=== PATIENT | male | born 1980 | race Caucasian/White ===

== ENCOUNTER 2019-01-26 18:50 | Emergency (ER) | payer OTHER ==
[~2019-01-26] VITALS: Ht 170.2 cm; Wt 72.6 kg
[2019-01-26 19:03] VITALS: BP 142/92
[2019-01-26] MEDS ORDERED: CYCLOBENZAPRINE 10 MG TABLET. PO ONE (19:30)
[2019-01-26] MEDS ORDERED: CYCL-331 PO (19:33)
--- NOTE | 2019-01-26 19:33 | PHYS DOC ---
Past History Past Medical History: No Pertinent History Alcohol Use: None Drug Use: None Adult General Chief Complaint Chief Complaint: SHOULDER INJURY HPI HPI 38-year-old male presents with right mid back pain. The patient was bench pressing yesterday and after he got done he felt the twinge in the posterior right shoulder. He thought maybe he was overdoing it is a little bit. Later on that evening and throughout the day today he has had increasing pain at the inferior trapezius area on the right side. The patient did not hear a pop or feeling of kind of tear. He now feels like the pain is squeezing tightness in the paraspinal muscles. He occasionally has an electrical type feeling that radiates from that area. He has been taking ibuprofen 800 every 6 hours but it does not making the spasms go away. Patient denies fever or chills. He has no other injuries or complaints. Review of Systems Review of Systems Constitutional: Denies fever or chills [] Eyes: Denies change in visual acuity, redness, or eye pain [] HENT: Denies nasal congestion or sore throat [] Respiratory: Denies cough or shortness of breath [] Cardiovascular: No additional information not addressed in HPI [] GI: Denies abdominal pain, nausea, vomiting, bloody stools or diarrhea [] : Denies dysuria or hematuria [] Musculoskeletal: Mid thoracic back pain on the right[] Integument: Denies rash or skin lesions [] Neurologic: Denies headache, focal weakness or sensory changes [] Endocrine: Denies polyuria or polydipsia [] All other systems were reviewed and found to be within normal limits, except as documented in this note. Allergies Allergies Allergies Coded Allergies Type Severity Reaction Last Updated Verified No Known Drug Allergies 01/26/19 No Physical Exam Physical Exam Constitutional: Well developed, well nourished, no acute distress, non-toxic appearance. [] HENT: Normocephalic, atraumatic, bilateral external ears normal, oropharynx moist, no oral exudates, nose normal. [] Eyes: PERRLA, EOMI, conjunctiva normal, no discharge. [] Neck: Normal range of motion, no tenderness, supple, no stridor. [] Cardiovascular:Heart rate regular rhythm, no murmur [] Lungs & Thorax: Bilateral breath sounds clear to auscultation [] Abdomen: Bowel sounds normal, soft, no tenderness, no masses, no pulsatile masses. [] Skin: Warm, dry, no erythema, no rash. [] Back: Tenderness and muscle spasm T8-T10 on the right[] Extremities: No tenderness, no cyanosis, no clubbing, ROM intact, no edema. [] Neurologic: Alert and oriented X 3, normal motor function, normal sensory functi on, no focal deficits noted. [] Psychologic: Affect normal, judgement normal, mood normal. [] Current Patient Data Vital Signs Vital Signs Date Time Temp Pulse Resp B/P (MAP) Pulse Ox O2 Delivery O2 Flow Rate FiO2 01/26/19 19:03 98.1 18 18 99 Room Air EKG EKG [] Radiology/Procedures Radiology/Procedures [] Course & Med Decision Making Course & Med Decision Making Pertinent Labs and Imaging studies reviewed. (See chart for details) I believe the patient has a paraspinal muscle strain with reflex spasm. I have advised that he continue the ibuprofen but also use ice, rest, and muscle relaxers. I'll give her a prescription for Flexeril. I will give his first dose in the ED. The patient is stable for discharge at this time. [] Dragon Disclaimer Dragon Disclaimer This electronic medical record was generated, in whole or in part, using a voice recognition dictation system. Departure Departure: Impression: Primary Impression: Strain of right trapezius muscle Disposition: HOME, SELF-CARE Condition: STABLE Referrals: PCP,NO (PCP) Patient Instructions: Thoracic Strain, Ovye-yn-Ptgh Scripts Cyclobenzaprine Hcl (CYCLOBENZAPRINE HCL) 10 Mg Tablet 1 TAB PO TID PRN for MUSCLE SPASMS, #30 TAB Prov: FAUZIA BARRETT DO 01/26/19 Problem Qualifiers Primary Impression: Strain of right trapezius muscle Encounter type: initial encounter Qualified Codes: S46.811A - Strain of other muscles, fascia and tendons at shoulder and upper arm level, right arm, initial encounter FAUZIA BARRETT DO Jan 26, 2019 19:33
== END 2019-01-26 19:50 | disposition home or self-care (01) ==
LOC: ER 18:50
DX: S46.811A Strain of other muscles, fascia and tendons at shoulder and upper arm level, right arm, initial encounter (principal); X50.9XXA Other and unspecified overexertion or strenuous movements or postures, initial encounter; Y93.89 Activity, other specified; Y92.89 Other specified places as the place of occurrence of the external cause; Y99.8 Other external cause status
CPT/HCPCS: 99283

== ENCOUNTER 2019-04-26 20:54 | Emergency (ER) | payer OTHER ==
[~2019-04-26] VITALS: Ht 182.9 cm; Wt 97.5 kg
[~2019-04-26 20:54] MED LIST: CYCL-331 PO
--- NOTE | 2019-04-26 20:57 | ED.ADGEN ---
Past History Past Medical History: No Pertinent History Alcohol Use: None Drug Use: None Adult General Chief Complaint Chief Complaint ".. I notice I started getting pain back on my Lt hip area.. and today it looks like insect bite.. but it all infected looking .. I can't ever have my pants against it..." HPI HPI Patient is a 38 year old male who presents with above hx and complaints of insect bite left upper gluteal area. Patient has a 6 x 6 cm area of pointing abscess. No striations. No history immunosuppression. No history of specific ill contacts. Last tetanus shot was approximately 1 year ago. Review of Systems Review of Systems Constitutional: Denies fever or chills [] Eyes: Denies change in visual acuity, redness, or eye pain [] HENT: Denies nasal congestion or sore throat [] Respiratory: Denies cough or shortness of breath [] Cardiovascular: No additional information not addressed in HPI [] GI: Denies abdominal pain, nausea, vomiting, bloody stools or diarrhea [] : Denies dysuria or hematuria [] Musculoskeletal: Denies back pain or joint pain [] Integument: Denies rash or skin lesions []Complaints of abscess cellulitis left gluteal area. Neurologic: Denies headache, focal weakness or sensory changes [] Endocrine: Denies polyuria or polydipsia [] All other systems were reviewed and found to be within normal limits, except as documented in this note. Family History Family History Noncontributory Current Medications Current Medications Current Medications Medications (Trade) Dose Ordered Sig/Montrell Start Time Stop Time Status Last Admin Dose Admin Ceftriaxone Sodium (Rocephin Im) 1 gm 1X ONCE 04/26/19 22:45 04/26/19 22:46 DC 04/26/19 23:01 1 GM Lidocaine HCl 20 ml STK-MED ONCE 04/26/19 22:48 04/26/19 22:49 DC Trimethoprim/ Sulfamethoxazole (Bactrim Ds) 1 tab 1X ONCE 04/26/19 22:45 04/26/19 22:46 DC 04/26/19 22:53 1 TAB Allergies Allergies Allergies Coded Allergies Type Severity Reaction Last Updated Verified No Known Drug Allergies 01/26/19 No Physical Exam Physical Exam Constitutional: Well developed, well nourished, moderately acute distress, non- toxic appearance. [] HENT: Normocephalic, atraumatic, bilateral external ears normal, oropharynx moist, no oral exudates, nose normal. [] Eyes: PERRLA, EOMI, conjunctiva normal, no discharge. [] Neck: Normal range of motion, no tenderness, supple, no stridor. [] Cardiovascular:Heart rate regular rhythm, no murmur [] Lungs & Thorax: Bilateral breath sounds clear to auscultation [] Abdomen: Bowel sounds normal, soft, no tenderness, no masses, no pulsatile masses. [] Skin: Warm, dry, no erythema, no rash. Pointing abscess left gluteal area as per history of present illness Back: No tenderness, no CVA tenderness. [] Extremities: No tenderness, no cyanosis, no clubbing, ROM intact, no edema. [] Neurologic: Alert and oriented X 3, normal motor function, normal sensory function, no focal deficits noted. [] Psychologic: Affect anxious, judgement normal, mood normal. [] Current Patient Data Vital Signs Vital Signs Date Time Temp Pulse Resp B/P (MAP) Pulse Ox O2 Delivery O2 Flow Rate FiO2 04/26/19 21:39 98.2 83 16 100 Room Air EKG EKG [] Radiology/Procedures Radiology/Procedures [] Course & Med Decision Making Course & Med Decision Making Pertinent Labs and Imaging studies reviewed. (See chart for details) Procedure note clean area with Betadine. Incised abscess with 11 blade with return of 2-3 mL of mucopurulent pus. Dressing applied. Patient keep area clean and dry. Patient use moist heat packs with salt or Epsom salts 4 times a day. Massage area Polysporin 4 times a day. Take Bactrim DS twice a day. Follow-up primary care. Return if any concerns. Tylenol or ibuprofen pain. [] Final Impression Final Impression 1. Cellulitis/abscess[] Dragon Disclaimer Dragon Disclaimer This electronic medical record was generated, in whole or in part, using a voice recognition dictation system. Dragon Disclaimer This chart was dictated in whole or in part using Voice Recognition software in a busy, high-work load, and often noisy Emergency Department environment. It may contain unintended and wholly unrecognized errors or omissions. GEE BARON MD Apr 26, 2019 20:57
[2019-04-26 21:39] VITALS: BP 123/82
[2019-04-26] MEDS ORDERED: SULF1TAB24 PO (22:31)
[2019-04-26] MEDS ORDERED: SMZ/TMP 800/160MG TABLET. PO ONE (22:45)
[2019-04-26] MEDS ORDERED: cefTRIAXone IM 1 GM VIAL IM ONE (22:45)
[2019-04-26] MEDS ORDERED: LIDOCAINE 2% 20 ML VIAL. ONE (22:47)
[2019-04-26] MEDS ORDERED: LIDOCAINE 1% Multi-Dose 20 ML VIAL. ONE (22:48)
== END 2019-04-26 23:14 | disposition home or self-care (01) ==
LOC: ER 20:54
DX: L02.31 Cutaneous abscess of buttock (principal); L03.317 Cellulitis of buttock
CPT/HCPCS: 10060; 96372; 99283; J0696